=== PATIENT | female | born 1970 | race Caucasian/White ===

== ENCOUNTER 2024-03-19 08:29 | Observation (INO) ==
--- NOTE | 2024-03-19 09:36 | Emergency Department Note ---
History of Present Illness General Chief complaint: Headache Stated complaint: HEADACHE, SHAKY, HEAVY HEAD, DEHYDRATED Time Seen by Provider: 03/19/24 09:21 History of Present Illness Maximum Pain Intensity: 5 This is a 53-year-old female that presents to the emergency department via private vehicle accompanied by significant other's mother with complaints of "headache, shaky, dehydrated". The patient notes that for the past 6 weeks she has had intermittent nausea. She notes trouble eating and drinking secondary to the nausea. However she is able to ingest she then is able to keep the food down as there is no vomiting. The patient does note mild intermittent headache she attributes secondary to dehydration. The nausea she notes comes and goes noting that she is fine for a few days and then returns. She does note overall not feeling well. Mild lightheadedness/dizziness today with the nausea. No chest pain or shortness of breath. No back pain. No abdominal pain. No fevers. No preceding or infectious illness. The patient denies any recent tick bites or rashes. She does note recent EGD on the of last month which was essentially negative for any concerning process. I did review the patient's upper GI endoscopy. This revealed a normal esophagus. Normal stomach. Normal examined duodenum. Home Medications Medication Instructions Recorded Confirmed Type cetirizine 10 mg tablet 10 mg PO QAM 01/30/24 03/19/24 History metoprolol succinate 100 mg 100 mg PO QAM 01/30/24 03/19/24 History tablet,extended release 24 hr omeprazole 40 mg capsule,delayed 40 mg PO QAM 01/30/24 03/19/24 History release ondansetron 4 mg disintegrating 4 mg PO Q8H PRN nausea and 03/03/24 03/19/24 Rx tablet vomiting #30 tabs Allergies Allergy/AdvReac Type Severity Reaction Status Date / Time adhesive tape Allergy Intermediate rash with Verified 03/19/24 18:52 bandaids latex Allergy Intermediate Rash Verified 03/19/24 12:57 Penicillins AdvReac Intermediate Hives Verified 03/19/24 12:57 Quinolones AdvReac Intermediate Rash Verified 03/19/24 12:57 Past Med/Surg History Problem List (Updated 03/20/24 @ 18:51 by Shelley Mills PA-C) Anxiety Transaminitis Hypokalemia (Acute) Hypomagnesemia (Acute) Decreased oral intake (Acute) Intractable nausea (Acute) Upper abdominal pain Encounter for pre-operative examination Medical History Cyst of kidney, acquired "Just found out in the ER - not sure which kidney" Irregular heart beat Follows PCP Kenneth Angel Adverse reaction to anesthetic agent "They had to wake me up during my foot surgery because I stopped breathing or was breathing funny." Nausea & vomiting Anxiety Epigastric abdominal pain Hypertension Surgical History Hx of tubal ligation Hx of section History of surgery Adhesions after cholecystectomy Hx of cholecystectomy Hx of foot surgery Left Family History Other No pertinent family history Social History Smoking Status: Never smoker Second Hand Exposure: No; Do You Dip or Chew Tobacco: No; Tobacco Cessation Education Requested by Patient: No Hx Alcohol Use: No Hx Substance Use: No Preferred Language: Welsh Communication Ability: Effective Sequins Spooler Required: No Beliefs That Will Affect Care: None Current Living Situation: Spouse Feels Safe at Home: Yes Safety Concerns: Feels Safe At This Time Assistive Devices: None Review of Systems A total of 10 systems reviewed and were otherwise negative Physical Exam Vital Signs Vital Signs - 24 hr 03/19/24 08:46 03/19/24 09:43 03/19/24 09:59 Temperature 36.7 C Temperature Source Oral Pulse Rate 80 70 58 L Pulse Rate from SpO2 Sensor Pulse Rhythm Regular Respiratory Rate 16 12 Blood Pressure 156/91 H Blood Pressure Mean 112 Blood Pressure Position Sitting Pulse Oximetry 99 99 Oxygen Delivery Method Room Air Room Air Sepsis Recent Fever Within 48 Hours No Sepsis New/Unexplained Change in Mental Status No Sepsis Action Taken by Nursing No Action Required 03/19/24 10:00 03/19/24 11:03 03/19/24 11:57 Temperature Temperature Source Pulse Rate 64 73 62 Pulse Rate from SpO2 Sensor 71 62 Pulse Rhythm Respiratory Rate 12 8 L 11 L Blood Pressure 156/92 H 142/77 H 133/91 Blood Pressure Mean 113 98 105 Blood Pressure Position Pulse Oximetry 96 99 99 Oxygen Delivery Method Sepsis Recent Fever Within 48 Hours Sepsis New/Unexplained Change in Mental Status Sepsis Action Taken by Nursing 03/19/24 13:24 03/19/24 13:57 10/03/24 14:00 Temperature Temperature Source Pulse Rate 52 L 54 L 55 L Pulse Rate from SpO2 Sensor 52 L 57 L Pulse Rhythm Respiratory Rate 10 L 10 L Blood Pressure 151/85 H 128/82 Blood Pressure Mean 107 97 Blood Pressure Position Pulse Oximetry 99 97 Oxygen Delivery Method Sepsis Recent Fever Within 48 Hours Sepsis New/Unexplained Change in Mental Status Sepsis Action Taken by Nursing 03/19/24 15:51 Temperature Temperature Source Pulse Rate 58 L Pulse Rate from SpO2 Sensor 58 L Pulse Rhythm Respiratory Rate 10 L Blood Pressure 136/85 Blood Pressure Mean 102 Blood Pressure Position Pulse Oximetry 98 Oxygen Delivery Method Sepsis Recent Fever Within 48 Hours Sepsis New/Unexplained Change in Mental Status Sepsis Action Taken by Nursing VITAL SIGNS - Vital signs and nursing notes were reviewed. Stable and afebrile. GENERAL - 53-year-old female appearing her stated age who is in no acute distress. Communicates well with provider and answers questions appropriately. SKIN - Without rashes. No meningeal or petechial rash. HEAD - NC/AT. EYES - PERRL with EOMI bilaterally. Sclera anicteric. EARS - No deformities of external structures noted on gross examination bilaterally. External auditory canals without discharge or otorrhea. Tympanic membranes pearly layton without retraction or bulging. No fluid or purulent material visualized behind the TM. Handle of malleus, umbo, cone of light, pars tensa/flaccid all easily visualized. NOSE - Midline and without cyanosis. No epistaxis or purulent drainage noted. Septum midline without deviation or septal hematoma noted. MOUTH/OROPHARYNX - Without perioral cyanosis. Buccal mucosa pink and moist and without leukoplakia. Tongue midline with equal elevation of palate bilaterally. No tonsillar hypertrophy, erythema, or exudates noted. Fair dentition noted. NECK - Neck with FROM. Supple to palpation. No lymphadenopathy noted. No nuchal rigidity. LUNGS - Chest wall symmetric without accessory muscle use, intercostals retractions, or central cyanosis. Normal vesicular breath sounds CTA B/L. No wheezes, rales, or rhonchi appreciated. CARDIAC - RRR ABDOMEN - Abdominal contour normal without pulsations or visible masses. BS normoactive all four quadrants. No tenderness, palpable masses, hepatosplenomegaly, or ascites noted. EXTREMITIES - No clubbing or peripheral cyanosis. +5/5 strength noted in UE/LE bilaterally. NEUROLOGIC - Cranial nerves II through XII grossly intact. PSYCH -alert, oriented and pleasant on exam Course Administered Medications Cetirizine HCl (Cetirizine Hcl 10 Mg Tablet) 10 mg PO [facility] [place] Stop: 04/19/24 08:59 Last Admin: 03/20/24 08:08 Dose: 10 mg Documented By: PORTILLO Melatonin (Melatonin 3 Mg Tab) 3 mg PO HS PRN PRN Reason: Insomnia Stop: 04/18/24 18:47 Last Admin: 03/20/24 21:50 Dose: 3 mg Documented By: DONATO Metoprolol Succinate (Metoprolol Succ 50mg Ext Rel Tab) 100 mg PO [facility] Stop: 04/19/24 08:59 Last Admin: 03/20/24 08:08 Dose: 100 mg Documented By: PORTILLO Ondansetron HCl (Ondansetron Inj 2 Mg/Ml 2 Ml Vial) 4 mg IV Q6H PRN PRN Reason: Nausea Stop: 04/18/24 18:47 Last Admin: 03/20/24 10:14 Dose: 4 mg Documented By: PORTILLO Pantoprazole Sodium (Pantoprazole 40 Mg Tab) 40 mg PO DAILY [facility] Stop: 04/19/24 08:59 Last Admin: 03/20/24 08:08 Dose: 40 mg Documented By: PORTILLO Sertraline HCl (Sertraline Hcl 50 Mg Tablet) 50 mg PO HS [facility] Stop: 04/19/24 20:59 Last Admin: 03/20/24 20:49 Dose: 50 mg Documented By: DONATO Discontinued Medications Sodium Chloride (Nss) 1,000 mls @ 500 mls/hr IV .Q2H RACHEL Stop: 03/19/24 11:44 Last Infusion: 03/19/24 12:47 Dose: Infused Documented By: Admin: 03/19/24 09:46 Dose: 500 mls/hr Documented By: CHRIS Magnesium Sulfate/Dextrose (Magnesium Sulfate / D5w) 1 gm in 100 mls @ 100 mls/hr IV NOW STA Stop: 03/19/24 13:41 Last Infusion: 03/19/24 16:13 Dose: Infused Documented By: Admin: 03/19/24 12:56 Dose: 100 mls/hr Documented By: EBONY Lactated Ringer's (Lr) 1,000 mls @ 125 mls/hr IV .Q8H RACHEL Stop: 04/18/24 18:47 Last Infusion: 03/20/24 18:38 Dose: Infused Documented By: Admin: 03/20/24 15:36 Dose: 125 mls/hr Documented By: Infusion: 03/20/24 15:28 Dose: Infused Documented By: Infusion: 03/20/24 15:04 Dose: 125 mls/hr Documented By: Infusion: 03/20/24 11:01 Dose: 0 mls/hr Documented By: Admin: 03/20/24 03:25 Dose: 125 mls/hr Documented By: Infusion: 03/20/24 03:24 Dose: Infused Documented By: Admin: 03/19/24 19:24 Dose: 125 mls/hr Documented By: RADHA Magnesium Sulfate/Dextrose (Magnesium Sulfate / D5w) 1 gm in 100 mls @ 50 mls/hr IV Q2H RACHEL Stop: 03/20/24 14:44 Last Infusion: 03/20/24 14:55 Dose: Infused Documented By: Admin: 03/20/24 12:31 Dose: 50 mls/hr Documented By: Infusion: 03/20/24 12:31 Dose: Infused Documented By: Admin: 03/20/24 10:54 Dose: 50 mls/hr Documented By: PORTILLO Potassium Chloride (K Arnaldo / Wtr) 10 meq in 100 mls @ 100 mls/hr IV Q1H RACHEL Stop: 03/20/24 12:44 Last Infusion: 03/20/24 14:55 Dose: Infused Documented By: Admin: 03/20/24 12:33 Dose: 100 mls/hr Documented By: Infusion: 03/20/24 11:52 Dose: Infused Documented By: Admin: 03/20/24 10:52 Dose: 100 mls/hr Documented By: PORTILLO Lorazepam (Lorazepam 2 Mg/1 Ml Vial) 0.5 mg IV Q6H PRN PRN Reason: Anxiety/Agitation/Nausea Stop: 04/18/24 21:50 Last Admin: 03/20/24 07:27 Dose: 0.5 mg Documented By: PORTILLO Lorazepam (Lorazepam 1 Mg Tab) 1 mg PO NOW STA Stop: 03/20/24 09:54 Last Admin: 03/20/24 11:01 Dose: Not Given Documented By: PORTILLO Metoclopramide HCl (Metoclopramide Hcl Inj 5 Mg/Ml 2 Ml Vial) 5 mg IV ONE ONE Stop: 03/19/24 11:13 Last Admin: 03/19/24 11:43 Dose: 5 mg Documented By: EBONY Potassium Chloride (Potassium Chloride Crtab 20 Meq Tabcr) 20 meq PO NOW STA Stop: 03/19/24 12:00 Last Admin: 03/19/24 12:17 Dose: 20 meq Documented By: EBONY Potassium Chloride (Potassium Chloride Crtab 20 Meq Tabcr) 20 meq PO NOW STA Stop: 03/19/24 16:20 Last Admin: 03/19/24 17:02 Dose: 20 meq Documented By: WALI Potassium Chloride (Potassium Chloride Crtab 20 Meq Tabcr) 40 meq PO NOW STA Stop: 03/20/24 10:35 Last Admin: 03/20/24 11:03 Dose: 40 meq Documented By: PORTILLO Medical Decision Making Laboratory Data 03/20/24 06:56 03/20/24 06:56 Lab Results 03/19/24 03/19/24 03/19/24 Range/Units 09:26 09:26 11:02 WBC 5.76 (4.8-10.8) K/ul RBC 5.13 (4.20-5.40) M/uL Hgb 13.0 (12.0-16.0) g/dl Hct 38.9 (37.0-47.0) % MCV 75.8 L (80.0-100.0) fL MCH 25.3 (25.0-34.0) pg MCHC 33.4 (32.0-36.0) g/dL RDW Std Deviation 40.1 (36.4-46.3) fL RDW Coeff of Praful 14.7 H (11.5-14.5) % Plt Count 194 (130-400) K/uL MPV 11.7 (9.4-12.4) fL Immature Gran % (Auto) 0.5 % Neut % (Auto) 76.4 % Lymph % (Auto) 15.5 % [place] % (Auto) 6.4 % Eos % (Auto) 0.5 % Baso % (Auto) 0.7 % Neut # (Auto) 4.40 (1.40-6.50) K/uL Lymph # (Auto) 0.89 L (1.20-3.40) K/uL [place] # (Auto) 0.37 (0.11-0.59) K/uL Eos # (Auto) 0.03 (0.00-0.50) K/uL Baso # (Auto) 0.04 (0.00-0.20) K/uL Immature Gran # (Auto) 0.03 (0.01-0.20) K/uL RBC Morphology Unremarkable PT 11.8 (9.0-12.0) Seconds INR 1.1 (0.9-1.1) APTT 25 (21-31) Seconds PTT Ratio 0.9 Sodium 138 (136-145) mmol/L Potassium 3.3 L (3.5-5.1) mmol/L Chloride 97 L (98-107) mmol/L Carbon Dioxide 30 (21-32) mmol/L Anion Gap 11 (3-11) BUN 8 (6-23) mg/dl Creatinine 0.62 (0.6-1.2) mg/dl Est Cr Clr Drug Dosing 108.4 ml/min eGFR 107.75 BUN/Creatinine Ratio 12.9 (10-20) Glucose 117 H (70-99(Fasting)) mg/dl Calcium 9.5 (8.6-10.3) mg/dl Magnesium 1.5 L (1.7-2.4) mg/dl Total Bilirubin 2.6 H (0.2-1.0) mg/dl AST 54 H (13-39) U/L ALT 90 H (7-52) U/L Alkaline Phosphatase 57 (34-104) U/L Troponin I High Sens 7.2 (0-14) pg/ml Total Protein 7.6 (6.0-8.3) gm/dl Albumin 4.3 (3.4-5.0) gm/dl Globulin 3.3 (2.5-4.0) gm/dl Albumin/Globulin Ratio 1.3 (0.9-2) Lipase 48 (11-82) U/L TSH 1.068 (0.300-4.500) uIu/ml HCG, Qual Negative (Negative) Urine Color Yellow Urine Appearance Clear (Clear) Urine pH 5.5 (4.5-7.5) Ur Specific [place] 1.015 (1.000-1.030) Urine Protein Trace H (Negative) Urine Glucose (UA) Negative (Negative) Urine Ketones 3+ H (Negative) Urine Blood Negative (Negative) Urine Nitrite Negative (Negative) Urine Bilirubin Negative (Negative) Urine Urobilinogen Negative (Negative) Ur Leukocyte Esterase Trace H (Negative) Urine WBC (Auto) 0-5 (0-5) /hpf Urine RBC (Auto) 0-2 (0-2) /hpf U Hyaline Cast (Auto) 0-2 (0-2) /lpf U Epithel Cells (Auto) 0-2 (0-2) /hpf Urine Bacteria (Auto) None Seen (None Seen) Urine Opiates Screen Neg (Neg) Ur Methadone, Qual Neg (Neg) Urine Fentanyl Screen Neg (Neg) Urine Barbiturates Neg (Neg) Ur Phencyclidine (PCP) Neg (Neg) U Amphetamin/Meth Scrn Neg (Neg) MDMA (Ecstasy) Screen Neg (Neg) U Benzodiazepines Scrn Neg (Neg) Ur Cocaine Metabolite Neg (Neg) U Marijuana (THC) Screen Neg (Neg) Adenovirus (PCR) Not Detected (NotDetected) Anaplasma Smear See Comment Cancelled B. pertussis DNA (PCR) Not Detected (NotDetected) B.parapertussis DNA PCR Not Detected (NotDetected) Lyme Disease Screen Negative (Negative) C. pneumoniae DNA (PCR) Not Detected (NotDetected) Coronavirus OC43 (PCR) Not Detected (NotDetected) Coronavirus HKU1 (PCR) Not Detected (NotDetected) Coronavirus 229E (PCR) Not Detected (NotDetected) SARS-CoV-2 (PCR) Not Detected (NotDetected) Coronavirus NL63 (PCR) Not Detected (NotDetected) Human Metapneumovir PCR Not Detected (NotDetected) Influenza Type A (PCR) Not Detected (NotDetected) Influenza Type B (PCR) Not Detected (NotDetected) M. pneumoniae (PCR) Not Detected (NotDetected) Parainfluenza 1 (PCR) Not Detected (NotDetected) Parainfluenza 2 (PCR) Not Detected (NotDetected) Parainfluenza 3 (PCR) Not Detected (NotDetected) Parainfluenza 4 (PCR) Not Detected (NotDetected) RSV (PCR) Not Detected (NotDetected) Entero/Rhino (PCR) Not Detected (NotDetected) Imaging Data Radiologist's Impression: Head CT 03/19/24 09:35 CT head/brain wo con CLINICAL HISTORY: 53 years-old Female with dizziness, nausea, headache. Acute headache with dizziness and nausea TECHNIQUE: Multiple axial CT images of the head were obtained without contrast. A dose lowering technique was utilized adhering to the principles of ALARA. CT DOSE: 547.75 mGy.cm COMPARISON: 04/10/2018 FINDINGS: No acute intracranial hemorrhage, midline shift, intracranial mass, hydrocephalus, territorial ischemia or abnormal extra-axial collection. The calvarium is intact. The paranasal sinuses, mastoid air cells, and middle ear cavities are clear. IMPRESSION: No acute intracranial abnormality. ACT 112: Negative or not required by law. The above report was generated using voice recognition software. It may contain grammatical, syntax or spelling errors. Electronically signed by: Maikel Loza M.D. 03/19/2024 11:04 AM [facility] Narrative Patient was seen and evaluated as above in room C8. Review was performed of triage nursing notes and vital signs. I did review pertinent previous visits and patient history. After obtaining a thorough history and physical examination the above work up was performed. Patient presents to us today for evaluation of nausea. This has been intermittent for the past 6 weeks. She has a benign abdominal exam. Mild remittent headache. No focal deficit. IV access with established. Labs were drawn. Patient was medicated here with IV fluids. CT head was obtained provide to rotation was negative for acute process. Formal radiology report is as above and is negative. Laboratory studies reveal no leukocytosis or concerning anemia. Coags normal. Mild hypokalemia 3.3. There is hyperglycemia 117. Hypomagnesemia 1.5. T. bili now 2.6 and AST 54 with ALT of 90. Patient denies any alcohol use. She denies any drug use. She denies any right upper quadrant abdominal pain. Patient denies any acetaminophen use. The patient notes decreased oral intake secondary to the nausea that seems to be continuing. Troponin here also negative. Lipase normal. TSH rules euthyroid state. hCG negative. Urinalysis reveals some ketones, otherwise no evidence of infection. Bio fire panel negative. Anaplasma smear and Lyme test negative. Anaplasma DNA send out test is currently pending. With the patient's continued nausea despite antiemetics at home as well as antiemetics here I did discuss benefit versus risk of inpatient versus outpatient management. Will proceed with inpatient management at this time. I discussed the case with the hospitalist service. Recommendation was to add on a urine drug screen which I did add. Hospitalist service consulted. I also ordered repletion of the patient's potassium and magnesium. Please refer to further documentation regarding her stay. GCS: 15 In the evaluation and treatment of this patient the following differential diagnoses were entertained: Intracranial hemorrhage, mass, biliary tract issue, among others Impression & Plan Intractable nausea, Decreased oral intake, Hypomagnesemia, Hypokalemia Discharge Plan Visit Data Chief Complaint: Headache Stated Complaint: HEADACHE, SHAKY, HEAVY HEAD, DEHYDRATED ED Provider: [facility] Midlevel Provider: Navjot Carey Discharge Problem: Intractable nausea, Decreased oral intake, Hypomagnesemia, Hypokalemia Patient Disposition: Admitted As Inpatient Condition: Good Discharge Instructions Interventions: ED Discharge Assessment Last Done: 03/19/24 18:31
[2024-03-19] MEDS: SODIUM CHLORIDE 0.9% 1,000 ML IV SCH (09:46)
[2024-03-19 10:06] LABS: Pregnancy Test, Serum Negative (Negative)
[2024-03-19 10:08] LABS: Basophils # (auto) 0.04 K/uL (0.00-0.20); Basophils % (auto) 0.7 %; Eosinophils # (auto) 0.03 K/uL (0.00-0.50); Eosinophils % (auto) 0.5 %; Hematocrit (blood only) 38.9 % (37.0-47.0); Immature Granulocytes # (auto) 0.03 K/uL (0.01-0.20); Immature Granulocytes % (auto) 0.5 %; Lymphocytes # (auto) 0.89 K/uL (1.20-3.40); Lymphocytes % (auto) 15.5 %; Mean Corpuscular Hemoglobin 25.3 pg (25.0-34.0); Mean Corpuscular Hgb Conc 33.4 g/dL (32.0-36.0); Mean Corpuscular Volume 75.8 fL (80.0-100.0); Mean Platelet Volume 11.7 fL (9.4-12.4); Monocytes # (auto) 0.37 K/uL (0.11-0.59); Monocytes % (auto) 6.4 %; Neutrophils % (auto) 76.4 %; Platelet Count 194 K/uL (130-400); RDW Coefficient of Variation 14.7 % (11.5-14.5); RDW Standard Deviation 40.1 fL (36.4-46.3); Red Blood Count 5.13 M/uL (4.20-5.40); White Blood Count 5.76 K/ul (4.8-10.8)
[2024-03-19 10:10] LABS: Appearance Urine Clear (Clear); Bacteria Urine Automated None Seen (None Seen); Bilirubin Urine Negative (Negative); Blood Urine Negative (Negative); Cast Urine Automated 0-2 /lpf (0-2); Color Urine Yellow; Epithelial Cell Urine Auto 0-2 /hpf (0-2); Glucose Urine UA Negative (Negative); Ketones Urine 3+ (Negative); Leukocyte Esterase Urine Trace (Negative); Nitrite Urine Negative (Negative); Protein Urine Trace (Negative); RBC Urine Automated 0-2 /hpf (0-2); Specific Gravity Urine 1.015 (1.000-1.030); Urobilinogen Urine Negative (Negative); WBC Urine Automated 0-5 /hpf (0-5); pH Urine 5.5 (4.5-7.5)
[2024-03-19 10:11] LABS: Albumin Globulin Ratio 1.3 (0.9-2); Albumin Level 4.3 gm/dl (3.4-5.0); BUN Creatinine Ratio 12.9 (10-20); Bilirubin,Total 2.6 mg/dl (0.2-1.0); Calcium 9.5 mg/dl (8.6-10.3); Creatinine Clr Calc Pharmacy 108.4 ml/min; Globulin 3.3 gm/dl (2.5-4.0); Magnesium 1.5 mg/dl (1.7-2.4); Potassium 3.3 mmol/L (3.5-5.1); Total Protein 7.6 gm/dl (6.0-8.3)
[2024-03-19 10:18] LABS: Troponin I High Sensitivity 7.2 pg/ml (0-14)
[2024-03-19 10:20] LABS: INR 1.1 (0.9-1.1); Partial Thromboplastin Ratio 0.9; Partial Thromboplastin Time 25 Seconds (21-31); Prothrombin Time 11.8 Seconds (9.0-12.0)
[2024-03-19 10:27] LABS: Thyroid Stimulating Hormone 1.068 uIu/ml (0.300-4.500)
--- NOTE | 2024-03-19 11:06 | CT Scan Report ---
CT head/brain wo con CLINICAL HISTORY: 53 years-old Female with dizziness, nausea, headache. Acute headache with dizzines s and nausea TECHNIQUE: Multiple axial CT images of the head were obtained without contrast. A dose lowering tech nique was utilized adhering to the principles of ALARA. CT DOSE: 547.75 mGy.cm COMPARISON: 04/10/2018 FINDINGS: No acute intracranial hemorrhage, midline shift, intracranial mass, hydrocephalus, territorial ischem ia or abnormal extra-axial collection. The calvarium is intact. The paranasal sinuses, mastoid air cells, and middle ear cavities are clear . IMPRESSION: No acute intracranial abnormality. ACT 112: Negative or not required by law. The above report was generated using voice recognition software. It may contain grammatical, syntax o r spelling errors. Electronically signed by: Maikel Loza M.D. 03/19/2024 11:04 AM
[2024-03-19 11:34] LABS: RBC Morphology Unremarkable
[2024-03-19] MEDS: METOCLOPRAMIDE HCL INJ 5 MG/ML 2 ML VIAL IV ONE (11:43)
[2024-03-19 12:04] LABS: Adenovirus PCR Not Detected (NotDetected); Bordetella parapertussis PCR Not Detected (NotDetected); Bordetella pertussis PCR Not Detected (NotDetected); Chlamydia pneumoniae PCR Not Detected (NotDetected); Coronavirus 229E PCR Not Detected (NotDetected); Coronavirus CoV-2 (COVID19)PCR Not Detected (NotDetected); Coronavirus HKU1 PCR Not Detected (NotDetected); Coronavirus NL63 PCR Not Detected (NotDetected); Coronavirus OC43PCR Not Detected (NotDetected); Human Metapneumovirus PCR Not Detected (NotDetected); Influenza A PCR Not Detected (NotDetected); Influenza B PCR Not Detected (NotDetected); Mycoplasma pneumoniae PCR Not Detected (NotDetected); Parainfluenza Virus 1 PCR Not Detected (NotDetected); Parainfluenza Virus 2 PCR Not Detected (NotDetected); Parainfluenza Virus 3 PCR Not Detected (NotDetected); Parainfluenza Virus 4 PCR Not Detected (NotDetected); Respiratory Syncytial VirusPCR Not Detected (NotDetected); Rhinovirus/Enterovirus PCR Not Detected (NotDetected)
[2024-03-19] MEDS: POTASSIUM CHLORIDE CRTAB 20 MEQ TABCR PO STA ×2 (12:17→17:02)
[2024-03-19] MEDS: MAGNESIUM SULFATE / D5W 1 GM/100 ML BAG IV STA (12:56)
--- NOTE | 2024-03-19 16:36 | Electrocardiogram Report ---
Test Reason : Blood Pressure : */* mmHG Vent. Rate : 60 BPM Atrial Rate : 60 BPM P-R Int : 160 ms QRS Dur : 86 ms QT Int : 402 ms P-R-T Axes : 2 17 6 degrees QTcB Int : 402 ms Normal sinus rhythm Minimal voltage criteria for LVH, may be normal variant Abnormal ECG When compared with ECG of 03-Mar-2024 05:39, No significant change was found Confirmed by Javan Perez ([id number]) on 03/19/2024 4:35:54 PM Referred By: REFERRED SELF Confirmed By: Javan Perez
--- NOTE | 2024-03-19 16:45 | History & Physical Report ---
Date of Service March 19, 2024 Assessment & Plan (1) Intractable nausea: Plan: Acute and ongoing x 6 weeks - Place in observation to med/surg - Clear liquid diet ordered - Vital signs per unit protocol - Zofran 4mg IV q6h prn n/v - IVF with LR @ 125 ml/hr overnight - Trend LFTs in AM, if remain unchanged or upward trend, would recommend MRCP - Continue Protonix 40mg daily (changed from omeprazole per hospital formulary) (2) Transaminitis: Plan: Acute - As above, hydrate overnight and trend in AM - If upward trend, recommend MRCP (3) Hypomagnesemia: Plan: Acute - Mag 1.5 on admission labs, repleted with Mag Sulfate 1g IV x1 - Repeat Mag level in AM, additional replacement as indicated (4) Hypokalemia: Plan: Acute - K+ 3.3, given KCl 20meq po x1 in ED - Given an additional KCl 20 meq PO now and repeat BMP in AM Plan Chronic medical issues - HTN - resume/continue metoprolol succinate 100mg daily VTE ppx ordered with Lovenox 40mg sq daily. CBC, BMP, Mag, and hepatic function panel ordered for tomorrow AM. Above plan of care has been d/w Dr. Bynum who will also see and evaluate this patient. Further orders as warranted by attending. History of Present Illness Chief Complaint: Nausea Primary Care Provider: Kenneth Angel PA-C Jacqueline is a 53 yo F with a pmhx of HTN, SVT, depression/anxiety, pulmonary nodule who presents to the ER c/o headache and nausea. She reports that for the past 6 weeks c/o intermittent nausea and dry heaves. She underwent a cholecystectomy in 2008 for which she stated was gangrenous when it was removed. She notes a 30 lb weight loss since the onset of her symptoms. She denies abd pain, diarrhea, or fever. No ill contacts. She had her PPI increased from 20mg to 40mg per her PCP note from 03/04/24 with some improvement. EGD performed on 03/13 without any acute findings. She also had an abdominal ultrasound on 03/03 that did not show any biliary ductal dilation with a surgically absent GB and hepatic steatosis. Today, she presented with c/o headache due to poor oral intake/dehydration. Her w/u demonstrated a potassium of 3.3 and a magnesium of 1.5. Her AST, ALT and total bilirubin were elevated at 54, 90, and 2.6 respectively. She was hydrated with 1L of NSS, a dose of Reglan, Magnesium 1g IV x1, and potassium chloride 20 meq po x1. She has been referred to hospital medicine team for admission. Allergies Allergy/AdvReac Type Severity Reaction Status Date / Time adhesive tape Allergy Intermediate rash with Verified 03/19/24 18:52 bandaids latex Allergy Intermediate Rash Verified 03/19/24 12:57 Penicillins AdvReac Intermediate Hives Verified 03/19/24 12:57 Quinolones AdvReac Intermediate Rash Verified 03/19/24 12:57 Home Medications Medication Instructions Recorded Confirmed Type cetirizine 10 mg tablet 10 mg PO QAM 01/30/24 03/19/24 History metoprolol succinate 100 mg 100 mg PO QAM 01/30/24 03/19/24 History tablet,extended release 24 hr omeprazole 40 mg capsule,delayed 40 mg PO QAM 01/30/24 03/19/24 History release ondansetron 4 mg disintegrating 4 mg PO Q8H PRN nausea and 03/03/24 03/19/24 Rx tablet vomiting #30 tabs Past Med/Surg History Problem List (Updated 03/19/24 @ 16:51 by Emily Kahn PA-C) Transaminitis Hypokalemia (Acute) Hypomagnesemia (Acute) Decreased oral intake (Acute) Intractable nausea (Acute) Upper abdominal pain Encounter for pre-operative examination Medical History Cyst of kidney, acquired "Just found out in the ER - not sure which kidney" Irregular heart beat Follows PCP Kenneth Angel Adverse reaction to anesthetic agent "They had to wake me up during my foot surgery because I stopped breathing or was breathing funny." Nausea & vomiting Anxiety Epigastric abdominal pain Hypertension Surgical History Hx of tubal ligation Hx of section History of surgery Adhesions after cholecystectomy Hx of cholecystectomy Hx of foot surgery Left Family History Other No pertinent family history Social History Smoking Status: Never smoker Second Hand Exposure: No; Do You Dip or Chew Tobacco: No; Tobacco Cessation Education Requested by Patient: No Hx Alcohol Use: No Hx Substance Use: No Preferred Language: Irish Communication Ability: Effective Manager Educational Required: No Beliefs That Will Affect Care: None Current Living Situation: Spouse Feels Safe at Home: Yes Safety Concerns: Feels Safe At This Time Assistive Devices: Glasses Review of Systems 2 Review of Systems: All systems reviewed and are unremarkable except as noted in HPI and below. Denies fever, chills, fatigue, headache, nasal congestion, sore throat, cough, chest pain, shortness of breath, palpitations, orthopnea, PND, abdominal pain, diarrhea, constipation, dysuria, hematuria, frequency, back pain, joint pain or swelling, easy bruising or bleeding, skin lesions or rashes. Physical Exam 2 Physical Exam: GENERAL: 53 yo well-nourished middle-aged WF. NAD. EYES: EOMI. PERRLA. Anicteric. HENT: Moist mucous membranes. No scleral icterus. No cervical lymphadenopathy. LUNGS: Clear to auscultation bilaterally. No W/R/R. CARDIOVASCULAR: Regular rate and rhythm. No M/G/R. No JVD. ABDOMEN: Soft, non-tender and non-distended. No palpable masses. BS normoactive x 4 quad. EXTREMITIES: No edema. Non-tender. Peripheral pulses +2/4. NEUROLOGIC: A&O x3. No focal neurological deficits. CN II-XII grossly intact. PSYCHIATRIC: Cooperative. Appropriate mood and affect. SKIN: Warm, dry, intact. No rashes or lesions. Results & Data Results & Data Vital Signs (Past 12 Hours) Vital Signs Temp Pulse Resp BP Pulse Ox O2 Del Method 03/19/24 14:00 55 L 03/19/24 10:00 64 12 156/92 H 96 03/19/24 09:59 58 L 03/19/24 09:43 70 12 99 Room Air 03/19/24 08:46 36.7 C 80 16 156/91 H 99 Room Air Laboratory Results 03/19/24 09:26 03/19/24 09:[address] 03/19/24 09:35 CT head/brain wo con CLINICAL HISTORY: 53 years-old Female with dizziness, nausea, headache. Acute headache with dizziness and nausea TECHNIQUE: Multiple axial CT images of the head were obtained without contrast. A dose lowering technique was utilized adhering to the principles of ALARA. CT DOSE: 547.75 mGy.cm COMPARISON: 04/10/2018 FINDINGS: No acute intracranial hemorrhage, midline shift, intracranial mass, hydrocephalus, territorial ischemia or abnormal extra-axial collection. The calvarium is intact. The paranasal sinuses, mastoid air cells, and middle ear cavities are clear. IMPRESSION: No acute intracranial abnormality. ACT 112: Negative or not required by law. The above report was generated using voice recognition software. It may contain grammatical, syntax or spelling errors. Electronically signed by: Maikel Loza M.D. 03/19/2024 11:04 AM Code Status & VTE Plan Code Status Full code - confirmed with patient VTE Prophylaxis Plan VTE Prophylaxis will be ordered: Yes Supervising Physician Co-Signing Physician Notes I personally saw and examined the patient. I independently reviewed the labs, EKG, imaging, problem list, medication list, past medical history and family history. I verified all lee points and agree with Emily Kahn PA-C with the following exceptions and/or additions: 53 year old female with 6 weeks of progressively getting worse nausea and reduced oral intake. Similar symptoms when she stopped sertraline in the past. Discontinued dose in August as she was doing well then in a way that she avoided withdrawal symptoms but probably too fast to prevent rebound symptoms. Extensive prior workup negative an most likely diagnosis is her anxiety at this time especially given high stress she describes with her daughter . Given severity of symptoms would recommend lorazepam PRN until her sertraline is uptitrated as quickly as possible. Just started back on 25mg PO daily, would increase to 50mg PO daily if doing well tomorrow. Use lorazepam 0.5mg IV PRN for anxiety and second line for nausea. Rehydrate and replace electrolytes, no need for MRCP at this stage unless significantly worsening LFTs. O/E HS RRR, no murmurs, Chest CTAB, Abdo SNT PG Care Time/CCT Total # of Minutes Spent Total Time Spent with Patient: Total time spent is greater than 50% in coordination of care (as documented) at patient's floor/unit and/or counseling patient: 77 minutes Coding Level of Care Code 22856 INT INP/OBS CARE /75MIN Diagnoses Intractable nausea R11.0 Transaminitis R74.01 Hypomagnesemia E83.42 Hypokalemia E87.6
[2024-03-19 16:59] LABS: Amphetamines+Metham, Urine Neg (Neg); Barbiturates, Urine Neg (Neg); Benzodiazepine, Urine Neg (Neg); Cocaine, Urine Neg (Neg); Fentanyl, Urine Neg (Neg); MDMA (Ecstacy), Urine Neg (Neg); Marijuana, Urine Neg (Neg); Methadone, Urine Neg (Neg); Opiate, Urine Neg (Neg); Phencyclidine, Urine Neg (Neg)
[2024-03-19] MEDS ORDERED: ALUMINUM/MAGNESIUM SUSP 30 ML UDC PO PRN (18:48)
[2024-03-19] MEDS ORDERED: POLYETHYLENE (MIRALAX) 17 GM PACK PO PRN (18:48)
[2024-03-19] MEDS ORDERED: MAGNESIUM HYDROXIDE SUSP 30 ML UDC PO PRN (18:48)
[2024-03-19] MEDS: LACTATED RINGER'S 1,000 ML IV SCH (19:24)
[2024-03-20 07:23] VITALS: TEMP 98.2
[2024-03-20] MEDS: LORazepam 2 MG/1 ML VIAL IV PRN (07:27)
[2024-03-20 07:29] LABS: Basophils # (auto) 0.04 K/uL (0.00-0.20); Basophils % (auto) 0.8 %; Eosinophils # (auto) 0.13 K/uL (0.00-0.50); Eosinophils % (auto) 2.7 %; Hematocrit (blood only) 34.6 % (37.0-47.0); Hemoglobin 11.4 g/dl (12.0-16.0); Immature Granulocytes # (auto) 0.02 K/uL (0.01-0.20); Immature Granulocytes % (auto) 0.4 %; Lymphocytes # (auto) 1.55 K/uL (1.20-3.40); Lymphocytes % (auto) 31.9 %; Mean Corpuscular Hgb Conc 32.9 g/dL (32.0-36.0); Mean Corpuscular Volume 75.9 fL (80.0-100.0); Mean Platelet Volume 11.4 fL (9.4-12.4); Monocytes # (auto) 0.47 K/uL (0.11-0.59); Monocytes % (auto) 9.7 %; Neutrophils # (auto) 2.65 K/uL (1.40-6.50); Neutrophils % (auto) 54.5 %; Platelet Count 152 K/uL (130-400); RDW Coefficient of Variation 14.9 % (11.5-14.5); Red Blood Count 4.56 M/uL (4.20-5.40); White Blood Count 4.86 K/ul (4.8-10.8)
[2024-03-20 07:45] LABS: Albumin Level 3.6 gm/dl (3.4-5.0); BUN Creatinine Ratio 10.3 (10-20); Bilirubin Direct 0.4 mg/dl (0-0.2); Bilirubin,Total 2.1 mg/dl (0.2-1.0); Calcium 8.8 mg/dl (8.6-10.3); Creatinine Clr Calc Pharmacy 126.3 ml/min; Magnesium 1.6 mg/dl (1.7-2.4); Total Protein 6.1 gm/dl (6.0-8.3)
[2024-03-20] MEDS: CETIRIZINE HCL 10 MG TABLET PO SCH (08:08)
[2024-03-20] MEDS: METOPROLOL SUCC 50MG EXT REL TAB PO SCH (08:08)
[2024-03-20] MEDS: PANTOprazole 40 MG TAB PO SCH (08:08)
[2024-03-20] MEDS ORDERED: ENOXAPARIN INJ 40 MG/0.4 ML SYR SQ SCH (09:00)
[2024-03-20] MEDS ORDERED: INFLUENZA VACC TS2024-25(6m+)/PF (IIV3) 0.5mL Syr IM ONE (09:00)
[2024-03-20] MEDS ORDERED: LORazepam 0.5 MG TAB PO PRN ×2 (09:56→10:00)
[2024-03-20] MEDS: ONDANSETRON INJ 2 MG/ML 2 ML VIAL IV PRN (10:14)
[2024-03-20] MEDS ORDERED: POTASSIUM CHLORIDE / WTR 10 MEQ/100 ML PLCT IV SCH (10:45)
[2024-03-20] MEDS: POTASSIUM CHLORIDE / WTR 10 MEQ/100 ML PLCT IV SCH (10:52)
[2024-03-20] MEDS: MAGNESIUM SULFATE / D5W 1 GM/100 ML BAG IV SCH (10:54)
[2024-03-20] MEDS: LORazepam 1 MG TAB PO STA (11:01)
[2024-03-20] MEDS: POTASSIUM CHLORIDE CRTAB 20 MEQ TABCR PO STA (11:03)
--- NOTE | 2024-03-20 14:30 | Hospitalist Progress Note ---
Date of Service March 20, 2024 Assessment & Plan (1) Intractable nausea: Plan: Acute and ongoing x 6 weeks - Continue clear liquid diet, advance as tolerated - Zofran 4mg IV q6h prn n/v - IVF x 24 hours on admission - Continue Protonix 40mg daily (changed from omeprazole per hospital formulary) (2) Transaminitis: Plan: Acute - Hydrated with IVF x 24 hours - LFTs downtrending -- monitor in AM, if remain unchanged or upward trend, would recommend MRCP (3) Hypomagnesemia: Plan: Acute - Mag 1.5 on admission labs, repleted but remained low on morning labs. Repleted and will recheck with AM labs (4) Hypokalemia: Plan: Acute - K+ 3.3, given KCl 20meq po x1 in ED - Given an additional KCl 20 meq PO now and repeat BMP in AM (5) Anxiety: Plan: Previously was on Zoloft 150 mg daily, but titrated herself off of this approximately 6 months ago Was doing well until about 6 weeks ago when she started having increased anxiety again A couple days prior to admission she began Zoloft 25 mg daily Started Zoloft 50 mg daily while inpatient Continue at discharge and titrate up accordingly Plan Updated boyfriend at bedside Ordered Ativan Started Zoloft Chronic medical issues - HTN - resume/continue metoprolol succinate 100mg daily VTE ppx ordered with Lovenox 40mg sq daily. CBC, BMP, Mag, and hepatic function panel ordered for tomorrow AM. Above plan of care has been d/w Dr. Bynum who will also see and evaluate this patient. Further orders as warranted by attending. Admission and Anticipated Discharge Date Admission Date: March 19, 2024 Subjective Patient seen and evaluated at bedside with her boyfriend present. She reports that her nausea is improved today, though still intermittently present. Her main concern today has been her anxiety. She did have a panic attack this morning requiring Ativan. She reports feeling shaky, diaphoretic, and hypertensive at that time. Currently, she is less anxious. She reports that she was previously on Zoloft 150 mg daily until about 6 months ago when she titrated off. She was doing well in regard to her anxiety until approximately 6 weeks ago. She states this is due to finding out that her daughter who is has intrauterine growth restriction. She notes that this heightened her anxiety. She started taking Zoloft 25 mg at bedtime a few days ago. We discussed increasing this to 50 mg at bedtime, and she is agreeable. No additional complaints or concerns at this time. Physical Exam Physical Exam: General: No acute distress, nondiaphoretic, well-developed, well-nourished. Anxious. Skin: The skin was without rashes, erythema, edema, or bruising. Cardiac: Regular rate and rhythm without murmurs gallops or rubs. Pulm: Clear to auscultation bilaterally without wheezes, rales or rhonchi. No respiratory distress. 96% on room air. Abdominal: Soft, nontender, nondistended. Bowel sounds present. Neuro: A&O x3. No focal neurological deficits. Results & Data Results & Data Vital Signs (Past 12 Hours) Vital Signs Temp Pulse Resp BP Pulse Ox O2 Del Method 03/20/24 09:30 81 171/105 H 03/20/24 08:00 98.2 F 74 16 165/102 H 98 Room Air 03/20/24 07:22 98.2 F 101 H 20 185/101 H 98 Room Air Laboratory Results Reviewed CBC Reviewed BMP Reviewed liver panel PG Care Time/CCT Total # of Minutes Spent Total Time Spent with Patient: Total time spent is greater than 50% in coordination of care (as documented) at patient's floor/unit and/or counseling patient: Coding Level of Care Code 82919 SUB INP/OBS CARE 3/50MIN Diagnoses Intractable nausea R11.0 Transaminitis R74.01 Hypomagnesemia E83.42 Hypokalemia E87.6 Anxiety F41.9
[2024-03-20 15:21] VITALS: O2SAT 96
[2024-03-20] MEDS: SERTRALINE HCL 50 MG TABLET PO SCH (20:49)
[2024-03-20 21:34] VITALS: RESP 18
[2024-03-20] MEDS: MELATONIN 3 MG TAB PO PRN (21:50)
[2024-03-21 07:25] VITALS: PULSE 63
[2024-03-21 07:35] LABS: Albumin Level 3.6 gm/dl (3.4-5.0); BUN Creatinine Ratio 6.8 (10-20); Bilirubin Direct 0.3 mg/dl (0-0.2); Bilirubin,Total 1.9 mg/dl (0.2-1.0); Calcium 8.9 mg/dl (8.6-10.3); Creatinine Clr Calc Pharmacy 124.2 ml/min; Magnesium 1.9 mg/dl (1.7-2.4); Potassium 3.6 mmol/L (3.5-5.1); Total Protein 6.1 gm/dl (6.0-8.3)
[2024-03-21] MEDS ORDERED: PROCHLORPERAZINE MALEATE 5 MG TAB PO PRN (09:22)
[2024-03-21 13:53] VITALS: BP 147/87
--- NOTE | 2024-03-21 17:01 | Discharge Summary ---
Discharge Summary Date of Service March 21, 2024 Principal Dx & Hospital Course #1 = Principal Diagnosis (1) Intractable nausea: 53 y/o admitted with nausea vomiting and headache. CT head in ED negative for acute changes. Acute and ongoing x 6 weeks Recent imaging Abdominal US 03/03/24 - hepatic steatosis, cholecystectomy, no biliary dilatation CT abdomen/pelvis 01/30/24 - no cause of abdominal pain seen, incidental findings: 4 mm indeterminate RLL pulmonary nodule, indeterminate 1.5 cm hypodense lesion L kidney favors hyperdense cyst No history of diabetes or cannabis use Abdominal exams and labs were benign. Did not have RUQ pain. Anxiety and significant life stressors seem to be playing a role. Stopped sertraline several months ago. Had similar presentation some years ago, also associated with stopping sertraline. -treated with antiemetics -resumed sertraline 50 mg daily. dose increase in 2 weeks if tolerating -lorazepam 0.5 mg SL may repeat x 1 for refractory N/V episode not responsive to antiemetics -continue PPI -tolerating diet -if nonresolving consider GI referral, has already had cholecystectomy in the past (2) Transaminitis: Mild bilirubin elevation - present this admission, as well as on previous labs 03/03/24, 01/30/24 as well as in 2018 No evidence of cirrhosis on labs, exam, abdominal imaging Might have Gilbert's Mild ALT elevation - related to hepatic steatosis (3) Hypomagnesemia: Mag 1.5, replaced (4) Hypokalemia: K 3.3, replaced (5) Anxiety: Previously was on Zoloft 150 mg daily, but titrated herself off of this approximately 6 months ago Was doing well until about 6 weeks ago when she started having increased anxiety again A couple days prior to admission she began Zoloft 25 mg daily Started Zoloft 50 mg daily while inpatient Continue at discharge and titrate up accordingly See above Plan Headache resolved Chronic medical issues - HTN - continue metoprolol succinate 100mg daily Notes For Next Care Provider Please follow up incidental findings from 01/30/24 CT as appropriate: "4 mm indeterminate RLL pulmonary nodule, indeterminate 1.5 cm hypodense lesion L kidney favors hyperdense cyst" Medication Changes From Visit sertraline 50 mg PRN compazine PRN lorazepam 0.5-1 mg SL PRN refractory vomiting #10 Admission HPI Per Admitting Provider Jacqueline is a 53 yo F with a pmhx of HTN, SVT, depression/anxiety, pulmonary nodule who presents to the ER c/o headache and nausea. She reports that for the past 6 weeks c/o intermittent nausea and dry heaves. She underwent a cholecystectomy in 2008 for which she stated was gangrenous when it was removed. She notes a 30 lb weight loss since the onset of her symptoms. She denies abd pain, diarrhea, or fever. No ill contacts. She had her PPI increased from 20mg to 40mg per her PCP note from 03/04/24 with some improvement. EGD performed on 03/13 without any acute findings. She also had an abdominal ultrasound on 03/03 that did not show any biliary ductal dilation with a surgically absent GB and hepatic steatosis. Today, she presented with c/o headache due to poor oral intake/dehydration. Her w/u demonstrated a potassium of 3.3 and a magnesium of 1.5. Her AST, ALT and total bilirubin were elevated at 54, 90, and 2.6 respectively. She was hydrated with 1L of NSS, a dose of Reglan, Magnesium 1g IV x1, and potassium chloride 20 meq po x1. She has been referred to hospital medicine team for admission. Discharge Exam PHYSICAL EXAMINATION Last 24h vital signs reviewed, see documentation in flowsheet General: comfortable appearing, no distress HEENT: Normocephalic, atraumatic, pupils round and equal, sclerae anicteric, no conjunctival injection, moist mucus membranes Lungs: Normal respiratory effort. Heart: deferred Abdomen: Soft, nontender, nondistended. Extremities: Warm, dry, well-perfused. No extremity edema. Neuro: Alert and oriented x 4, face symmetric, moves 4 extremities well Psych: Normal affect and behavior Discharge Plan Discharge Items Patient Disposition: Home - Self-Care Reason For Visit: INTRACTABLE N/V Discharge Diagnosis: nausea and vomiting, anxiety Condition on Discharge: Good Activity: Resume your previous activity Non-emergency contact: Primary Care Provider Call non-emergency contact if: you have any medication questions and your symptoms worsen Follow-up/Referrals: Kenneth Angel PA-C [Primary Care Provider] - Diet: Regular Addtl Attending Provider Instructions: Continue the sertraline 50 mg daily It would be reasonable to increase the dose to 75 mg in two weeks if tolerated You may use ondansetron or prochlorperazine (compazine) as needed for nausea. Sometimes its helpful to take this a half an hour prior to meals If you have nausea and vomiting that doesn't respond to the anti-nausea medicines you can take lorazepam (ativan) sublingually - place it under your tongue and let it dissolve. IF this is ineffective you can repeat the dose x [address] heavy machinery after taking nausea medication or lorazepam - these can take up to 8 hours to completely wear off Don't mix any of these medications with alcohol It was a pleasure taking care of you in the hospital, Shelley Stewart MD Pending Studies at Discharge: No Stand-Alone Forms: [facility], Work/School Release, Smoking Cessation Medications and DC Order Prescriptions: New prochlorperazine maleate 5 mg Tablet 5 mg PO Q4H PRN (Reason: nausea and vomiting) Qty: 20 0RF sertraline 50 mg Tablet 50 mg PO HS Qty: 0 0RF lorazepam 0.5 mg tablet 0.5 mg sublingual DAILY PRN (Reason: nausea and vomiting) Qty: 10 0RF Rx Instructions: may repeat x 1 if ineffective Continued cetirizine 10 mg Tablet 10 mg PO QAM Rx Instructions: OTC unable to verify metoprolol succinate 100 mg tablet extended release 24 hr 100 mg PO QAM omeprazole 40 mg Capsule,Delayed Release(Dr/Ec) 40 mg PO QAM ondansetron 4 mg tablet,disintegrating 4 mg PO Q8H PRN (Reason: nausea and vomiting) Qty: 30 0RF Discharge Orders: Discharge Order (Routine); Ordered 03/21/24 Ordered By: Shelley Stewart Admission Data Admit Date/Time: 03/19/24 16:18 Attending Provider: Shelley Stewart Admit Provider: Deep Bynum Primary Care Provider: Kenneth Angel Other Providers: Deep Bynum Other Interventions: Discharge Summary Assessment (RN) Last Done: 03/21/24 13:53 Hospital Stay Data Consultations 03/19/24 13:08 ED Decision to Admit Stat Diagnostic Imagining Performed 03/19/24 09:35 CT head/brain wo con Stat Pending Results Patient Have Any Pending Studies at Discharge: No Discharge Instructions Given to Patient (Per Discharging Provider) Continue the sertraline 50 mg daily It would be reasonable to increase the dose to 75 mg in two weeks if tolerated You may use ondansetron or prochlorperazine (compazine) as needed for nausea. Sometimes its helpful to take this a half an hour prior to meals If you have nausea and vomiting that doesn't respond to the anti-nausea medicines you can take lorazepam (ativan) sublingually - place it under your tongue and let it dissolve. IF this is ineffective you can repeat the dose x [address] heavy machinery after taking nausea medication or lorazepam - these can take up to 8 hours to completely wear off Don't mix any of these medications with alcohol It was a pleasure taking care of you in the hospital, Shelley Stewart MD Total Time Total Time Spent Total Time Spent (In Minutes): less than 30 minutes Coding Level of Care Code 22684 IN/OBS DISCH 30 MIN/LESS Diagnoses Intractable nausea R11.0 Transaminitis R74.01 Hypomagnesemia E83.42 Hypokalemia E87.6 Anxiety F41.9
== END 2024-03-21 14:38 | disposition home or self-care (01) ==
LOC: ED 08:29 → 3W 08:29 → SUATTDRO 16:18 → 3W 18:31